=== PATIENT | female | born 1985 | race Two or more races ===

== ENCOUNTER 2017-04-30 20:53 | Emergency (ER) | payer BC, OTHER ==
[~2017-04-30] VITALS: Ht 167.6 cm; Wt 63.5 kg
--- NOTE | 2017-04-30 21:12 | NUR ---
PT BIB [facility] WITH A C/O VOMITTING SINCE 2PM S/P DRINKING LAST NIGHT. PT IS AA&O X4. PT HAS A BUCKET TO VOMIT IN. PT WAS TRIAGED AND TAKEN TO ROOM #10. RESP EVEN AND UNLABORED. C/O ABD PAIN SINCE SHE STARTED VOMITTING AT 2PM. PT DID NOT RECEIVE ANY MEDICATION IN THE FIELD.
[2017-04-30] MEDS ORDERED: IV NS 0.9% 1,000 ML BAG IV ONE (21:30)
[2017-04-30] MEDS ORDERED: KETOROLAC TROMETHAMINE INJ 30 MG/ML VIAL IV ONE (21:30)
[2017-04-30] MEDS ORDERED: ONDANSETRON HCL/PF 4 MG/2 ML VIAL IVP ONE (21:30)
[2017-04-30] MEDS ORDERED: KETOROLAC TROMETHAMINE 15 MG/ML VIAL ONE (21:36)
[2017-04-30] MEDS ORDERED: ONDANSETRON HCL/PF 4 MG/2 ML VIAL ONE (21:36)
[2017-04-30] MEDS ORDERED: MAG HYDROX/AL HYDROX/SIMETH 30 ML UDC PO ONE (22:00)
[2017-04-30] MEDS ORDERED: LIDOCAINE VISCOUS 2% UD 15 ML UDC MM ONE (22:00)
[2017-04-30] MEDS ORDERED: MAG HYDROX/AL HYDROX/SIMETH 30 ML UDC ONE (22:01)
[2017-04-30] MEDS ORDERED: LIDOCAINE VISCOUS 2% UD 15 ML UDC ONE (22:01)
[2017-04-30 23:05] VITALS: BP 124/80
--- NOTE | 2017-04-30 23:05 | NUR ---
Patient discharged to home in stable condition. Written and verbal after care instructions given. Patient verbalizes understanding of instruction.IV removed. Catheter intact and site benign. Pressure and 4x4 applied to site. No bleeding noted.
== END 2017-04-30 23:07 | disposition home or self-care (01) ==
LOC: ER 20:54
DX: K29.00 Acute gastritis without bleeding (principal)
CPT/HCPCS: A4606; J1885; J2405; J7030; Z7610

== ENCOUNTER 2021-07-10 22:06 | Emergency (ER) | payer BC ==
--- NOTE | 2021-07-10 23:00 | NUR ---
PATIENT LEFT WITHOUT BEING SEEN, PICKED UP BY MOTHER. MADE AWARE.
== END 2021-07-10 23:01 | disposition left against medical advice (07) ==
LOC: ER 22:07
DX: Z53.21 Procedure and treatment not carried out due to patient leaving prior to being seen by health care provider (principal)

== ENCOUNTER 2023-09-26 12:28 | Emergency (ER) | payer BC ==
[~2023-09-26] VITALS: Ht 167.6 cm; Wt 65.8 kg
[2023-09-26 12:40] VITALS: BP 144/88; TEMP 98.2; O2SAT 98
[2023-09-26] MEDS: CYCLOBENZAPRINE 10 MG TABLET PO ONE (13:57)
[2023-09-26] MEDS ORDERED: KETOROLAC TROMETHAMINE 15 MG/ML VIAL ONE (13:58)
[2023-09-26] MEDS ORDERED: LIDOCAINE 5% (PATCH) 1 EA PATCH TP ONE (13:59)
[2023-09-26] MEDS ORDERED: CYCLOBENZAPRINE 10 MG TABLET ONE (13:59)
[2023-09-26] MEDS: KETOROLAC TROMETHAMINE 15 MG/ML VIAL IM ONE (14:07)
[2023-09-26] MEDS: LIDOCAINE 5% (PATCH) 1 EA PATCH TP STA (14:07)
[2023-09-26] MEDS ORDERED: LIDO30AD10 TP (14:21)
[2023-09-26] MEDS ORDERED: IBUP-1955 PO (14:21)
[2023-09-26] MEDS ORDERED: CYCL5TAB PO (14:21)
== END 2023-09-26 14:24 | disposition home or self-care (01) ==
LOC: ER 12:31
DX: M62.838 Other muscle spasm (principal); V89.2XXA Person injured in unspecified motor-vehicle accident, traffic, initial encounter; Y93.89 Activity, other specified; Y92.89 Other specified places as the place of occurrence of the external cause; Y99.8 Other external cause status
CPT/HCPCS: 99283; 96372; 73010; J1885